=== PATIENT | female | born 1940 | race Caucasian/White ===

== ENCOUNTER 2016-12-04 11:06 | Inpatient (IN) | payer MEDICARE, BC ==
[~2016-12-04] VITALS: Ht 165.1 cm; Wt 116.7 kg
--- NOTE | ~2016-12-04 | HP ---
ADMIT: 12/04/2016 RM/LOC: 429 [facility] MR#: [id number] [address] [place] [address] History and Physical SEX: F AGE: 76 : 1940 DATE OF SERVICE: CHIEF COMPLAINT: Fever and weakness. HISTORY OF PRESENT ILLNESS: This is a 76-year-old female, who presented to the emergency room with fever of 103 at her long-term. She has had a headache and felt a little short of breath. She had pneumonia recently and has been treated for this. She has had a wound ulcer that was seen a couple of days ago, which have been pretty stable. She has been having them debrided and treated with Santyl and Mamta as well as compression stockings. She had actually been seen by Dr. Melara for this. In the ER, she had influenza testing which was negative. She was given some Zosyn for this wound. Initial sepsis workup was negative. Lactic acid is 1.1. PAST MEDICAL HISTORY: Morbid obesity, hypertension, chronic lymphedema, chronic pain, osteoarthritis, history of right total hip, appendectomy, and left total hip. She had a second toe amputation for osteomyelitis. She had MRSA wound calf. She has obstructive sleep apnea, nocturnal hypoxia, postmenopausal vaginal bleeding, pulmonary hypertension, and chronic diastolic congestive heart failure. SOCIAL HISTORY: She lives in Nursing Facility. She is . Nonsmoker. FAMILY HISTORY: Dad in 60s of heart attack. Mother in 70s of heart disease. Two brothers with diabetes, stroke, and heart disease. One son with diabetes. REVIEW OF SYSTEMS: Other complete review of systems reviewed, but negative except as above. She feels a little short of breath and a little bit tired, but otherwise negative. PHYSICAL EXAMINATION: VITAL SIGNS: On admission; temperature 98.5, pulse 58, respirations 16, blood pressure 152/76, and oxygen saturation 92% on a couple liters of oxygen by cannula. GENERAL: This is a somnolent ill-appearing 76-year-old obese female. She is in no apparent distress. She is alert. She is oriented. HEENT: Pupils are equal, round, and reactive to light and accommodation. Her extraocular muscles are intact. Her throat is clear. NECK: Supple. Trachea midline. HEART: Regular rate and rhythm, but distant. LUNGS: Diminished, but clear bilaterally. ABDOMEN: Obese, soft without any evidence of tenderness. EXTREMITIES: Lower extremities, severe evidence of venous insufficiency with nodular changes. Right lower extremity has a dressing in place over the right calf wound. She has surrounding wound redness, induration, and tenderness to palpation. She can move all extremities equally bilaterally. Her cranial nerves are intact. ADMIT: 12/04/2016 RM/LOC: 429 [facility] MR#: [id number] [address] [place] [address] History and Physical SEX: F AGE: 76 : 1940 LABORATORY AND X-RAY DATA: Again as above. White count and platelets 193. Lactic acid is 1.1. Creatinine is 1.1. BUN 39 and potassium 3.2. Troponin 0.089. ASSESSMENT AND PLAN: 1. Cellulitis with sepsis. 2. Recent pneumonia with chronic hypoxia. 3. Morbid obesity. 4. Chronic lymphedema. 5. Chronic pain. PLAN: The patient will be admitted to the hospital. We will give her some vancomycin as well as Zosyn for her sepsis related to this wound because of her [facility]. She is exposed to healthcare, mainly she has high risk for gram-negative rods, which can be presumed in this case. We will follow her chest x-rays closely if it does not think like things are changing or looks like it is getting worse after review of better with a CT scan because of her size, we will get better picture on that. Luis Pina MD/ najma JOB #: [id number] CC: Luis Pina, Attending Physician Luis Pina, Family Physician
[~2016-12-04 11:06] MED LIST: ASA CHILDREN'S81 MG PO; CIPRO DPS500 MG PO; DEMADEX20 MG PO; MS CONTIN DPS30 MG PO; NAPROSYN DPS500 MG PO; NORVASC DPS10 MG PO; PERCOCET 5 DPS1 TAB PO; VITAMIN D35000 UNI1 PO
--- NOTE | 2016-12-09 13:31 | ER ---
ADMIT: 12/04/2016 RM/LOC: 429 [facility] MR#: [id number] [address] [place] [address] Emergency Room Report SEX: F AGE: 76 : 1940 DATE: 12/04/2016 ADDENDUM: The patient comes into the ER because she had a fever of 103 at the [facility]. She states she has a headache and is a little short of breath. This started yesterday, today it became intensively worse. She says she just has bilateral aching. On physical exam, her lungs are clear. Her abdomen is soft, but she does have a very red, warm right lower leg. She is severely obese. [place] white count [place] [id number]. Her lactic acid was 1.1. Chest x-ray was normal and urinalysis was normal. DIAGNOSES: 1. Sepsis. 2. Cellulitis to the right leg. I started her on Zosyn. I spoke with Dr. Pina. He will admit the patient. Please see his dictation for further treatment. ARNULFO Hopson / Markos Mann MD / najma JOB #: [id number] CC: Luis Pina MD, Attending Physician Luis Pina MD, Family Physician
[2016-12-09] MEDS ORDERED: APRESOLINE-DPS25 MG PO (14:57)
[2016-12-09] MEDS ORDERED: ASA CHILDREN'S81 MG PO (14:57)
[2016-12-09] MEDS ORDERED: ALDACTONE DPS25 MG PO (14:57)
[2016-12-09] MEDS ORDERED: DELTASONE DPS5 MG PO (14:59)
[2016-12-09] MEDS ORDERED: KLOR-CON M2020 ME1 PO (14:59)
[2016-12-09] MEDS ORDERED: LASIX DPS80 MG PO (15:00)
[2016-12-09] MEDS ORDERED: MS CONTIN DPS15 MG PO (15:00)
[2016-12-09] MEDS ORDERED: NORVASC5 MG PO (15:00)
[2016-12-09] MEDS ORDERED: SENOKOT S1 TAB PO (15:00)
[2016-12-09] MEDS ORDERED: NORMAL SALINE FL5 ML IV (15:01)
[2016-12-09] MEDS ORDERED: DUONEB DPS3 ML IH (15:01)
[2016-12-09] MEDS ORDERED: PERCOCET 10 DPS1 TAB PO (15:02)
[2016-12-09] MEDS ORDERED: VANCOCIN-DPS1 GM IV (15:02)
[2016-12-09] MEDS ORDERED: MAALOX DPS30 ML PO (15:02)
[2016-12-09] MEDS ORDERED: TYLENOL DPS325 MG PO (15:03)
[2016-12-09] MEDS ORDERED: SURFAK DPS240 MG PO (15:03)
--- NOTE | 2016-12-11 22:11 | DS ---
ADMIT: 12/04/2016 RM/LOC: 429 [facility] MR#: [id number] [address] [address] [place] [address] Discharge Summary SEX: F AGE: 76 : 1940 ADMISSION DATE: 12/04/2016 DISCHARGE DATE: 12/08/2016 FINAL DIAGNOSES: 1. Cellulitis with sepsis. 2. Left lower lobe pneumonia. 3. Hypokalemia. 4. Chronic heart failure, preserved ejection fraction. 5. Chronic kidney disease, stage III. 6. Severe lymphedema. 7. Chronic pain. 8. Elevated troponin. 9. Chronic nocturnal hypoxia. 10.Morbid obesity. REASON FOR ADMISSION: This is a 76-year-old female, who lives at [facility]. She had diffuse debility because of chronic pain. She was brought in for weakness and shortness of breath. HOSPITAL COURSE: She was seen in the ER. Found to have a high fever and right lower extremity cellulitis associated with a right lower extremity partida wound that has been chronic. She was needing 4 L of oxygen initially. She did have some acute hypoxic respiratory failure on top of her chronic nocturnal hypoxic respiratory failure. She was evaluated with CT scan of her chest during her hospital stay because of persistent hypoxia, and she was seen to have persistent pneumonia. She was placed on Zosyn and vancomycin, and she continued to do okay. She was no longer febrile after these were started. She was on pulmonary toilet with some steroids and nebulizer treatments. Vanco troughs were followed. She was given extra potassium because of some persistent hypokalemia. Her pneumonia was likely related to gram-negative rods because of her exposure to healthcare. By the day of discharge, she was doing well. She was no longer febrile. Was having much less leg pain and swelling and induration on that leg. DISCHARGE INSTRUCTIONS: Medications: 1. Aldactone 12.5 mg daily. 2. Hydralazine 25 mg t.i.d. 3. Aspirin 81 mg daily. ADMIT: 12/04/2016 RM/LOC: 429 [facility] MR#: [id number] [address] [address] [place] [address] Discharge Summary SEX: F AGE: 76 : 1940 4. Prednisone 10 mg daily for 7 days then 5 mg daily after that. 5. Potassium chloride 40 mEq b.i.d. x2 more days then daily after that. 6. She has Lasix 80 mg in the morning and 40 mg at 1500. 7. MS Contin 15 mg p.o. b.i.d. 8. Norvasc 5 mg daily. 9. Senokot-S 2 tabs daily. 10.DuoNebs t.i.d. x7 days. 11.Vancomycin 1.5 g q.18 hours x10 days. 12.We will continue her regular oxycodone 10/325 one q.6h p.r.n. 13.Percocet 10/325 mg q.6h p.r.n. She will follow up with me in 1-2 weeks. She is a full code. Luis Pina MD/ juan JOB #: [id number] CC: Luis Pina MD, Attending Physician Luis Pina MD, Family Physician
== END 2016-12-08 14:30 | DRG 871 ==
LOC: ER 11:06 → 4PCU 13:20
PROVIDERS: ADMIT Internal Medicine
DX: A41.9 Sepsis, unspecified organism (principal); J15.6 Pneumonia due to other Gram-negative bacteria; J96.21 Acute and chronic respiratory failure with hypoxia; I13.0 Hypertensive heart and chronic kidney disease with heart failure and stage 1 through stage 4 chronic kidney disease, or unspecified chronic kidney disease; I27.2 Other secondary pulmonary hypertension; L03.115 Cellulitis of right lower limb; I50.32 Chronic diastolic (congestive) heart failure; Z68.41 Body mass index [BMI] 40.0-44.9, adult; L97.819 Non-pressure chronic ulcer of other part of right lower leg with unspecified severity; E66.01 Morbid (severe) obesity due to excess calories; G47.33 Obstructive sleep apnea (adult) (pediatric); R09.02 Hypoxemia; N18.3 Chronic kidney disease, stage 3 (moderate); G89.29 Other chronic pain; I89.0 Lymphedema, not elsewhere classified; M19.90 Unspecified osteoarthritis, unspecified site; E87.6 Hypokalemia; R79.89 Other specified abnormal findings of blood chemistry; I83.018 Varicose veins of right lower extremity with ulcer other part of lower leg; Z82.49 Family history of ischemic heart disease and other diseases of the circulatory system; Z89.429 Acquired absence of other toe(s), unspecified side; Z86.14 Personal history of Methicillin resistant Staphylococcus aureus infection; Z96.643 Presence of artificial hip joint, bilateral

== ENCOUNTER → 2016-12-17 | Outpatient (CLI) | payer MEDICARE, BC ==
[~2016-12-17] MED LIST changes: +ALDACTONE DPS25 MG PO; +APRESOLINE-DPS25 MG PO; +DELTASONE DPS5 MG PO; +DUONEB DPS3 ML IH; +KLOR-CON M2020 ME1 PO; +LASIX DPS80 MG PO; +MAALOX DPS30 ML PO; +MS CONTIN DPS15 MG PO; +NORMAL SALINE FL5 ML IV; +NORVASC5 MG PO; +PERCOCET 10 DPS1 TAB PO; +SENOKOT S1 TAB PO; +SURFAK DPS240 MG PO; +TYLENOL DPS325 MG PO; +VANCOCIN-DPS1 GM IV
== END | disposition home or self-care (01) ==
LOC: THER.SSS 16:13
DX: T82.898A Other specified complication of vascular prosthetic devices, implants and grafts, initial encounter (principal); L03.115 Cellulitis of right lower limb